=== PATIENT | male | born 1965 | race Caucasian/White ===

== ENCOUNTER → 2023-05-21 14:39 | Outpatient (REF) | payer OTHER, SELFPAY | LOC: HWRAD 14:39 | PROVIDERS: ATTENDING PHYSICIAN Physician Assistant Medical; FAMILY PHYSICIAN Student in an Organized Health Care Education/Training Program | DX: R10.13 Epigastric pain (principal) | CPT/HCPCS: 76700 ==

== ENCOUNTER → 2023-05-30 09:18 | Outpatient (REF) | payer OTHER, SELFPAY | LOC: HWRAD 09:18 | PROVIDERS: ATTENDING PHYSICIAN Physician Assistant Medical; FAMILY PHYSICIAN Student in an Organized Health Care Education/Training Program | DX: R10.13 Epigastric pain (principal) | CPT/HCPCS: 74177; Q9967 ==

== ENCOUNTER → 2023-08-05 16:22 | Outpatient (REF) | payer OTHER, SELFPAY | LOC: WDC 16:22 | PROVIDERS: ATTENDING PHYSICIAN Student in an Organized Health Care Education/Training Program | DX: Z12.31 Encounter for screening mammogram for malignant neoplasm of breast (principal); Z80.3 Family history of malignant neoplasm of breast | CPT/HCPCS: 77063; 77067 ==

== ENCOUNTER 2023-08-26 14:47 | Emergency (ER) | payer OTHER, SELFPAY ==
[2023-08-26 14:52] VITALS: BP 142/85
--- NOTE | 2023-08-26 15:41 | ED.GENMED ---
History of Present Illness
General
Chief Complaint: Abdominal Pain
Source: patient and spouse
Exam Limitations: none
Time Seen by Provider: 08/26/23 15:08
Nursing documentation reviewed up to this point in time: agreed with
Travel History
Have you had any contact with someone who has COVID-19?: No
Do you have any symptoms of coronavirus? Fever > 100 degrees, chills, cough, shortness of breath, sore throat, loss of taste or smell, muscle aches, or headache?: No
History of Present Illness
History of Present Illness:
58-year-old male presents emerged department complaining of his right inguinal hernia letting loose and not being able to reduce it. He was walking around plan the [employer] for day ceremony at [facility].
Past History
Past History
ED Past Medical History: Asthma, Cancer, HTN (Takes diltiazem) and Psychiatric (anxiety)
ED Past Surgical History: Orthopedic (fx L tib fib) and Other (sleep apnea surgery with resolution of symptoms. Excision of melanoma)
Social History
Tobacco: Non-smoker
Alcohol: None
Drug: None
Personal:
Living: with family
Employment: Employed
Family History
Family History: Other (A. fib)
Review of Systems
Review of Systems
Allergies reviewed?: Yes
All Other Systems: Not applicable
Constitutional: Reports no symptoms
EENT: Reports no symptoms
Respiratory: Reports no symptoms
Cardiac: Reports no symptoms
ABD/GI: Reports other (Right groin pain)
: Reports no symptoms
Musculoskeletal: Reports no symptoms
Skin: Reports no symptoms
Neurological: Reports no symptoms
Endocrine: Reports no symptoms
Hematologic/Lymphatic: Reports no symptoms
Psychiatric: Reports no symptoms
Phy Exam
Physical Exam
Physical Exam:
Physical Exam
General: no apparent distress, not acutely ill
Neck: supple. no meningeal signs. normal posterior pharynx
Heart: equal radial pulses.
HEENT: Pupils equal round reactive to light, EOMI
Lungs: no acute respiratory distress. clear bilaterally
Abdomen: normal bowel sounds. not tender. no CVAT, right groin no palpable mass or hernia, nontender
Neuro: alert and oriented. no focal neurological deficits cranial nerves II through XII intact
Skin: no rash
Psychiatric: well kept. interactive and cooperative
Extremities: no edema. no calf tenderness. negative homans. good distal pulses
Course
Orders/Labs/Results
Orders:
Orders
08/26/23 15:31
US Groin (Imaging Only) RT Urgent
Comment:
Reason For Exam: right groin pain, history of hernia
Vital Signs
Initial and Last Documented VS:
Initial Vital Signs
Temp Pulse Resp BP Pulse Ox
98.2 F 75 18 142/85 99
08/26/23 14:52 08/26/23 14:52 08/26/23 14:52 08/26/23 14:52 08/26/23 14:52
Last Documented Vital Signs
Temp Pulse Resp BP Pulse Ox
98.2 F 75 18 142/85 99
08/26/23 14:52 08/26/23 14:52 08/26/23 14:52 08/26/23 14:52 08/26/23 14:52
MDM/Problems Addressed
Differential Diagnosis Includes:
Right inguinal hernia, groin pain
MDM/Problems Addressed:
58-year-old male with right groin pain, possibly from fat-containing hernia. No signs of incarcerated bowel. No significant tenderness or mass felt. For discharge to follow-up with general surgery. Return precautions given.
*Radiology
Radiology exam reviewed: radiology read reviewed (Ultrasound shows no signs of bowel incarceration or significant hernia)
*Pulse Oximetry
Patient hypoxic: no
*EKG
Interpreted by ED Provider?: NA
*Master Hearth Technician Interpretation
Rate: Master Hearth Technician- N/A
*Critical Care Note
Total Time (30-74mins, 75-104mins- exclusive of procedures): Not Applicable
Data Reviewed
Review of Other/Old Records Reveals: Radiology Studies (Prior CT abdomen pelvis showed fat-containing inguinal hernia on 05/30/2023)
Source: records
Patient Management
Social determinants of health affecting care: Living situation
Escalation/DeEscalation of care consider admission/obs:
Admit not indicated
ED Attending Note
-
Portions of this chart may have been created with voice recognition software.� Occasional wrong word or��sound alike� substitutions may have occurred due to the inherent limitations of voice recognition software.
Discharge Plan
Departure
Patient Disposition: Home (Routine Discharge)
Date of Disposition: 08/26/23
Time of Disposition: 17:56
Patient with high blood pressure during this ER visit?: Yes
Condition: Good
Discharge Problem:
Right groin pain
Instructions: Groin Hernia (DC), BLOOD PRESSURE
Prescriptions:
No Action
albuterol sulfate 2.5 MG/3 ML solution for nebulization
2.5 mg inhalation R QIDPRN PRN (Reason: SOB)
acetaminophen 325 MG tablet
650 mg PO Q4HPRN PRN (Reason: headache)
pravastatin 40 MG tablet
80 mg PO .1800
ketotifen fumarate [Zaditor] 1 DROP drops
1 drp BOTH EYES Q8HPRN PRN (Reason: dryness)
cranberry 450 MG tablet
450 mg PO DAILY@1600
[place]-3 Plus Vitamin D3 1 EACH capsule,delayed release(DR/EC)
1 cap PO .1800
albuterol sulfate [Albuterol Sulfate HFA] 18 GM HFA aerosol inhaler
1 - 2 puff inhalation QIDPRN PRN (Reason: SOB)
Men's Multivitamin 1 EACH tablet
1 ea PO .1800
Retaine MGD (PF) 1 EACH dropperette
1 ea OP TID
duloxetine [Cymbalta] 30 mg capsule,delayed release(DR/EC)
30 mg PO DAILY Qty: 14 0RF
diltiazem HCl 120 mg tablet
120 mg PO BID
Referrals:
Heather Llamas MD [Family Provider] -
Dung Garcia MD [Active] - Call in 1-3 days for appt
Interventions
Interventions:
GD-Vjqics-Vhycsfesmo Assessment Last Done: 08/26/23 15:36
Discharge Date and Time
Print Language: ALBANIAN
[2023-08-26 18:26] VITALS: BP 144/95
== END 2023-08-26 18:28 | disposition home or self-care (01) ==
LOC: EMR 14:47
PROVIDERS: EMERGENCY PHYSICIAN Emergency Medicine; FAMILY PHYSICIAN Student in an Organized Health Care Education/Training Program
DX: R10.31 Right lower quadrant pain (principal); K40.90 Unilateral inguinal hernia, without obstruction or gangrene, not specified as recurrent; J45.909 Unspecified asthma, uncomplicated; I10 Essential (primary) hypertension; F41.9 Anxiety disorder, unspecified; G47.30 Sleep apnea, unspecified; Z85.820 Personal history of malignant melanoma of skin; Z79.899 Other long term (current) drug therapy
CPT/HCPCS: 99284; 76882

== ENCOUNTER 2023-10-07 06:32 | Day surgery (SDC) | payer OTHER, SELFPAY ==
[2023-09-25 07:12] VITALS: BMI 27.3
[2023-09-25 08:50] LABS: Hematocrit 45.2 % (39.0-52.0); Hemoglobin 15.7 g/dL (13.0-18.0); Mean Corp Hgb Conc. 34.7 g/dL (33.0-37.0); Mean Corpuscular Volume 86.4 fL (80.0-94.0); Mean Platelet Volume 10.6 fL (7.4-10.4); Platelet Count 227 10^3/uL (130-400); Red Blood Cell Count 5.23 10^6/uL (4.70-6.10); Red Cell Dist. Width 12.4 % (11.5-14.5); White Blood Cell Count 11.4 10^3/uL (4.8-10.8)
[2023-09-25 09:39] LABS: Blood Urea Nitrogen 20 mg/dl (9-20); Calcium 9.6 mg/dl (8.4-10.2); Carbon Dioxide 27 mmol/L (22-30); Chloride 103 mmol/L (98-107); Estimated Creatinine Clearance 81 ml/min; Glucose 123 mg/dl (70-99); Potassium 4.2 mmol/L (3.5-5.1); Sodium 141 mmol/L (135-145); eGFR > 60.00
[2023-10-07] VITALS (10 sets, daily range): BP systolic 106–127; BP diastolic 63–74; BMI 27.3
[2023-10-07] MEDS: NORMOSOL-R 1000 IV (08:58)
[2023-10-07] MEDS: TYLENOL 1000 MG PO (08:58)
--- NOTE | 2023-10-07 10:03 | HP.FOC2 ---
Focused History & Physical
Chief Complaint
HPI:
Chief Complaint: Bilateral inguinal hernias
HPI / Indication for Planned Procedure: Patient is a 58-year-old male recently seen in outpatient surgical evaluation secondary to a longstanding history of bilateral inguinal hernias that he is chosen to follow expectantly for the last 14 years.
They have slowly enlarged in size he now is having some discomfort particularly in the right inguinal region while standing. Physical examination confirmed the presence of bilateral inguinal hernias, reducible, right side larger than left. He
presents today for scheduled operative correction.
Relevant Past Medical History: Other (History of prostatitis, asthma, hypercholesterolemia, migraines, anxiety, hypertension, GERD, cervical herniated disc, sleep apnea)
Relevant Social History: Negative
Relevant Family History: Negative
Relevant Past Surgical History: Positive for ([place] teeth, tibial zelda, foot surgery, tonsils, right lower extremity staph infection, uvuloplasty, resection melanoma, right rotator cuff, cardiac catheterization)
Review of Systems
Review of Pertinent Systems: All Systems Negative
Medication
See Medication form for detailed medications: Yes
Medication List (including Herbals & OTC):
albuterol sulfate 2.5 mg/3 mL (0.083 %) solution for nebulization 2.5 mg inhalation R QIDPRN PRN SOB 08/09/16
acetaminophen 325 mg tablet 650 mg PO Q4HPRN PRN headache 01/12/21
cranberry fruit 450 mg tablet (cranberry) 450 mg PO DAILY@1600 Supplement 01/12/21
omega-3 150 jz-gzn-gpm-fish oil 500 mg-D3 200 unit capsule,delayed rel ([place]-3 Plus Vitamin D3) 1 cap PO QPM Supplement 01/12/21
diltiazem HCl 120 mg tablet 120 mg PO BID Arrhythmia 06/17/22
albuterol sulfate 90 mcg/actuation aerosol inhaler 2 inh inhalation PRN PRN SOB, Wheezes 09/30/23
duloxetine 30 mg capsule,delayed release (Cymbalta) 60 mg PO DAILY 09/30/23
light mineral oil-mineral oil (PF) 0.5 %-0.5 % eye drops,dropperette (Retaine MGD (PF)) 1 drp ophthalmic (eye) TID 09/30/23
multivitamin 1 tab PO QPM 09/30/23
pravastatin 80 mg tablet 80 mg PO QPM 09/30/23
Medications Reviewed: Yes
Allergies and Reactions
Patient has Allergies: Yes
Noted Allergies and Reactions:
Allergy/AdvReac Type Severity Reaction Status Date / Time
alfuzosin Allergy Low blood Verified 10/07/23 08:37
pressure
and chest
pain
alprazolam [From Xanax] Allergy Headache Verified 10/07/23 08:37
aspirin Allergy Stomach Verified 10/07/23 08:37
Pain
atorvastatin Allergy Sharp pain Verified 10/07/23 08:37
in hands
celecoxib Allergy LEG CRAMPS Verified 10/07/23 08:37
erythromycin base Allergy Severe Verified 10/07/23 08:37
Diarrhea,
GI Upset,
Nausea
grass pollen Allergy Sneezing, Verified 10/07/23 08:37
Rhinitis,
Itchy
Eyes,
Asthma
Symptoms
hydrocodone [From Vicodin] Allergy Anxiety Verified 10/07/23 08:37
hydrocodone bitartrate Allergy anxious Verified 10/07/23 08:37
[From Vicodin]
meloxicam Allergy Chest Verified 10/07/23 08:37
Pressure
mold Allergy Sneezing, Verified 10/07/23 08:37
Rhinitis,
Itchy
Eyes,
Asthma
Symptoms
shellfish derived Allergy Hives, Verified 10/07/23 08:37
Difficulty
Breathing
tamsulosin Allergy Low blood Verified 10/07/23 08:37
pressure,
fatigue,
pounding
heart rate
anesthesia AdvReac Pharmacy Uncoded 10/07/23 08:37
to Review
Pertinent Physical Exam
All Other Systems: Negative
Head/Neck: Normal
Lungs: Normal
Heart: Normal
Abdomen: Other (Bilateral inguinal hernias right larger than left)
Extremities: Normal
Neurological: Normal
Diagnosis / Assessment
58-year-old male presenting for scheduled operative correction symptomatic inguinal hernias
Plan / Procedure
Robotic assisted laparoscopic repair bilateral inguinal hernias with mesh
Anesthesia/Sedation to be done by Anesthesia Provider: Yes
--- NOTE | 2023-10-07 10:06 | W.SUR.PREOP ---
Pre-Operative Surgical Note
-
I have examined this patient prior to the performance of the scheduled procedure.
The patient's condition is unchanged from the time of the current History and
Physical and the patient is able to undergo the scheduled procedure.
--- NOTE | 2023-10-07 13:04 | W.IMMPOSTOP ---
Addendum entered and electronically signed by Roderick Lackey MD 10/07/23 13:34:
The assistance of Abigail Polo PA-C was required due to the complexity of the procedure. During the procedure Abigail Polo PA-C assisted with port placement, robotic instrumentation and suture material exchanges, and closure of the surgical incision
sites. I was present for the entirety of the operative procedure.
Original Note:
Surgical Immed Post Op Note
-
Primary Surgeon: Darya
Assisting Surgeon: Abigail Polo PA-c
Pre-op Diagnosis: Bilateral inguinal hernias
Post-op Diagnosis: Bilateral inguinal hernia; direct
Procedure Performed: RAL DOMONIQUE repair bilateral inguinal hernias with mesh; 3D max large regular weight
Anesthesia Type: GETA +0.25% Marcaine
Specimen / Cultures: None
Estimated Blood Loss: 6 mL
Complications: None immediate
Operative Findings: Large bilateral direct inguinal hernias. Springer catheter placed to assist with decompression of bladder for exposure, 200 mL urine. Indirect and femoral spaces normal. Area of adhesions in small bowel likely reflective of prior
events of small bowel protruding into hernia. 3D max large regular weight mesh repair x 2. Superficial plication of attenuated transversalis fascia/pseudosac with 2-0 PDS Stratafix.
[2023-10-07] MEDS: ZOFRAN 4 MG IV (13:09)
[2023-10-07] MEDS: DILAUDID 0.25 MG IV (13:36)
== END 2023-10-07 14:40 | disposition home or self-care (01) ==
LOC: SDS 06:32
PROVIDERS: ATTENDING PHYSICIAN Surgery; FAMILY PHYSICIAN Student in an Organized Health Care Education/Training Program
DX: K40.20 Bilateral inguinal hernia, without obstruction or gangrene, not specified as recurrent (principal)
CPT/HCPCS: 49650; 36415; 80048; 85027; C1781

== ENCOUNTER 2023-10-12 10:02 | Emergency (ER) | payer OTHER, SELFPAY ==
[2023-10-12 10:09] VITALS: BP 134/83
--- NOTE | 2023-10-12 11:19 | ED.GENMED ---
History of Present Illness
General
Chief Complaint: Bowel Problem
Source: patient
Exam Limitations: none
Time Seen by Provider: 10/12/23 11:09
History of Present Illness
History of Present Illness:
See MDM
Past History
Past History
ED Past Medical History: Asthma, Cancer, HTN (Takes diltiazem) and Psychiatric (anxiety)
ED Past Surgical History: Orthopedic (fx L tib fib) and Other (sleep apnea surgery with resolution of symptoms. Excision of melanoma)
Social History
Tobacco: Non-smoker
Alcohol: None
Drug: None
Personal:
Living: with family
Employment: Employed
Family History
Family History: Other (A. fib)
Phy Exam
Physical Exam
Physical Exam:
See MDM
Course
Orders/Labs/Results
Orders:
Orders
10/12/23 11:19
Enema- Treatment ONCE
Type: Milk of Molasses
10/12/23 12:01
Abdominal Series [CR Obstruct Series W/pa Chest] Urgent
Comment:
Reason For Exam: constipated, left abd pain
10/12/23 13:39
Magnesium Citrate [Citroma] 300 ml PO ONCE ONE
Vital Signs
Initial and Last Documented VS:
Initial Vital Signs
Temp Pulse Resp BP Pulse Ox
98.8 F 73 16 134/83 98
10/12/23 10:09 10/12/23 10:09 10/12/23 10:09 10/12/23 10:09 10/12/23 10:09
Last Documented Vital Signs
Temp Pulse Resp BP Pulse Ox
98.8 F 73 16 134/83 98
10/12/23 10:09 10/12/23 10:09 10/12/23 10:09 10/12/23 10:09 10/12/23 10:09
MDM/Problems Addressed
Differential Diagnosis Includes:
HPI and MDM Narrative:
58-year-old male presenting for evaluation of constipation. Patient had routine bilateral inguinal hernia repair performed on the eighth. His last bowel movement was on the seventh. Patient has not had a bowel movement in 6 days or so. He has
been taking MiraLAX and Dulcolax with no relief. He is passing gas. He denies vomiting
We discussed the expect constipation issues as result to likely ileus. Regardless, he is extremely well-appearing and nontoxic. His abdomen is soft and nontender. There is no clinical signs of obstruction. Rectal exam was performed and I was
able to palpate stool. However, it was too proximal for me to disimpact. Will give milk of molasses enema and reassess
Physical exam
General: Well appearing and non-toxic
HEENT: protecting airway
Neck: appears supple
CV: No evidence of cyanosis
Resp: No accessory muscle use
Abd: Non-distended. Soft and nontender
Rectal: Stool palpated in the rectal vault
Extremities: No deformities
Neuro: alert
Psych: Normal affect
Skin: Intact
Problems Addressed including Acute and Chronic Conditions affecting care:
1. Postoperative constipation
Acuity: acute
Prognosis: stable
Details: Likely an ileus. Given that stool is in the rectal vault and he has no signs of obstruction, will give enema and reassess
Updates
Patient feeling much better after enema. Will write for magnesium citrate and patient feels comfortable going home
Differential Diagnosis (but not limited to): Constipation, postoperative ileus
Testing considered: Abdominal x-ray
Drug therapy (if applicable): OTC meds, please see d/c instruction regarding Rx drugs
Amount and/or Complexity of Data Reviewed
Clinical info obtained from: Patient
External data reviewed: N/A
Labs I independently reviewed (but not limited to): N/A
Radiology: X-ray independently reviewed: Abdominal x-ray with some stool but no obstructive pathology
Pulse Ox: not hypoxic
EKG independently reviewed: N/A
Boat Oar Maker: N/A
Critical Care: N/A
Risk of Complication:
Social Determinants of health: Good social support
Discussed with other providers: N/A
Escalation of Care includes Admit/Obs: After being observed in the Emergency Department, pt stable for discharge.
Occasional wrong word or 'sound a like' substitutions may have occurred due to the inherent limitations of voice recognition software. Read the chart carefully and recognize, using context, where substitutions have occurred.
*Critical Care Note
Total Time (30-74mins, 75-104mins- exclusive of procedures): Not Applicable
ED Attending Note
-
Portions of this chart may have been created with voice recognition software.� Occasional wrong word or��sound alike� substitutions may have occurred due to the inherent limitations of voice recognition software.
Discharge Plan
Departure
Patient Disposition: Home (Routine Discharge)
Date of Disposition: 10/12/23
Time of Disposition: 13:40
Patient with high blood pressure during this ER visit?: No
Discharge Problem:
Constipation
Instructions: Constipation, Adult (DC)
Prescriptions:
No Action
albuterol sulfate 2.5 MG/3 ML solution for nebulization
2.5 mg inhalation R QIDPRN PRN (Reason: SOB)
acetaminophen 325 MG tablet
650 mg PO Q4HPRN PRN (Reason: headache)
cranberry 450 MG tablet
450 mg PO DAILY@1600
[place]-3 Plus Vitamin D3 1 EACH capsule,delayed release(DR/EC)
1 cap PO QPM
diltiazem HCl 120 mg tablet
120 mg PO BID
multivitamin Tablet
1 tab PO QPM
pravastatin 80 mg Tablet
80 mg PO QPM
albuterol sulfate 90 mcg/actuation Hfa Aerosol Inhaler
2 inh INHALATION PRN PRN (Reason: SOB, Wheezes)
Retaine MGD (PF) 0.5-0.5 % Dropperette
1 drp ophthalmic (eye) TID
duloxetine [Cymbalta] 30 mg capsule,delayed release(DR/EC)
60 mg PO DAILY
ibuprofen 200 mg tablet
400 - 600 mg PO Q6HPRN PRN (Reason: moderate pain) Qty: 1 0RF
polyethylene glycol 3350 [Miralax] 17 gram/dose powder
4 g PO DAILY PRN (Reason: Constipation) Qty: 119 0RF
Rx Instructions:
start a laxative such as MIRALAX on day 2 after surgery if no bowel movement yet as long as no nausea/vomiting and passing gas
oxycodone 5 mg tablet
5 mg PO Q4HPRN PRN (Reason: breakthrough/severe pain) Qty: 5 0RF
Referrals:
Heather Llamas MD [Family Provider] -
Activity Restrictions/Additional Instructions:
Please return for any worsening symptoms.
You may return at any time if you have further concerns.
Please follow up with your doctor at the first available appointment, preferably this week.
Please take a daily stool softener moving forward.
Thank you for choosing [facility].
Interventions
Interventions:
*Risk Screen - Suicide Last Done: 10/12/23 11:30
*General Assessment Last Done: 10/12/23 10:10
*Neglect/Abuse Screening Last Done: 10/12/23 11:30
ED- Fall Risk Assessment Last Done: 10/12/23 11:30
*ED COVID-19 Vaccine History Last Done: 10/12/23 10:10
KA-Pmvqgy-Rdtekojlxj Assessment Last Done: 10/12/23 11:30
Discharge Date and Time
Print Language: HONG KONG[place]
[2023-10-12] MEDS: CITROMA 300 ML PO (13:48)
== END 2023-10-12 13:52 | disposition home or self-care (01) ==
LOC: EMR 10:02
PROVIDERS: EMERGENCY PHYSICIAN Student in an Organized Health Care Education/Training Program; FAMILY PHYSICIAN Student in an Organized Health Care Education/Training Program
DX: K59.00 Constipation, unspecified (principal)
CPT/HCPCS: 99283; 74022

== ENCOUNTER → 2023-11-26 14:42 | Outpatient (REF) | payer OTHER, SELFPAY | LOC: RAD 14:42 | PROVIDERS: ATTENDING PHYSICIAN Physical Medicine & Rehabilitation; FAMILY PHYSICIAN Student in an Organized Health Care Education/Training Program | DX: M54.12 Radiculopathy, cervical region (principal); M50.30 Other cervical disc degeneration, unspecified cervical region | CPT/HCPCS: 72050 ==

== ENCOUNTER → 2023-12-03 13:21 | Outpatient (REF) | payer OTHER, SELFPAY | LOC: PAVMRI 13:21 | PROVIDERS: ATTENDING PHYSICIAN Physical Medicine & Rehabilitation; FAMILY PHYSICIAN Student in an Organized Health Care Education/Training Program | DX: M54.12 Radiculopathy, cervical region (principal); M50.30 Other cervical disc degeneration, unspecified cervical region | CPT/HCPCS: 72141 ==

== ENCOUNTER → 2023-12-11 15:36 | Outpatient (REF) | payer OTHER, SELFPAY | LOC: RAD 15:36 | PROVIDERS: ATTENDING PHYSICIAN Physical Medicine & Rehabilitation; FAMILY PHYSICIAN Student in an Organized Health Care Education/Training Program | DX: M54.12 Radiculopathy, cervical region (principal); M50.30 Other cervical disc degeneration, unspecified cervical region | CPT/HCPCS: 72125 ==

== ENCOUNTER → 2024-06-08 12:23 | Outpatient (REF) | payer OTHER, SELFPAY | LOC: RAD 12:23 | PROVIDERS: ATTENDING PHYSICIAN Internal Medicine; FAMILY PHYSICIAN Student in an Organized Health Care Education/Training Program | DX: M79.672 Pain in left foot (principal) | CPT/HCPCS: 73630 ==

== ENCOUNTER 2024-06-13 14:03 | Emergency (ER) | payer OTHER, SELFPAY ==
[2024-06-13 14:05] VITALS: BP 145/87
[2024-06-13 14:24] LABS: % Basophils 1.2 % (0-2); % Eosinophils 1.8 % (0-6); % Immature Granulocytes 0.2 % (0-0.5); % Lymphocytes 18.9 % (20.5-51.1); % Monocytes 11.8 % (1.7-9.3); % Neutrophils 66.1 % (42.2-75.2); Absolute Basophils 0.1 10^3/uL (0-0.2); Absolute Eosinophils 0.1 10^3/uL (0-0.7); Absolute Lymphocytes 1.1 10^3/uL (1.2-3.4); Absolute Monocytes 0.7 10^3/uL (0.1-0.6); Hematocrit 47.2 % (39.0-52.0); Hemoglobin 16.6 g/dL (13.0-18.0); Mean Corp Hgb Conc. 35.2 g/dL (33.0-37.0); Mean Corpuscular Hgb 30.6 pg (27.0-31.0); Mean Corpuscular Volume 86.9 fL (80.0-94.0); Nucleated Red Blood Cells % 0 % (-); Platelet Count 233 10^3/uL (130-400); Red Blood Cell Count 5.43 10^6/uL (4.70-6.10); Red Cell Dist. Width 12.2 % (11.5-14.5)
[2024-06-13 14:46] LABS: ALT (SGPT) 36 U/L (0-50); AST (SGOT) 30 U/L (17-59); Albumin 4.6 g/dl (3.5-5.0); Alkaline Phosphatase 71 U/L (38-126); Blood Urea Nitrogen 18 mg/dl (9-20); Calcium 9.9 mg/dl (8.4-10.2); Carbon Dioxide 30 mmol/L (22-30); Chloride 100 mmol/L (98-107); Glucose 166 mg/dl (70-99); Potassium 4.3 mmol/L (3.5-5.1); Sodium 139 mmol/L (135-145); Total Bilirubin 0.8 mg/dl (0.2-1.3); eGFR > 60.00
[2024-06-13 14:47] LABS: Troponin I 0.014 ng/ml
[2024-06-13 17:20] VITALS: BP 148/91
--- NOTE | 2024-06-13 17:59 | ED.GENMED ---
History of Present Illness
General
Chief Complaint: Breathing Problem
Source: patient and spouse
Exam Limitations: none
Time Seen by Provider: 06/13/24 17:43
Nursing documentation reviewed up to this point in time: agreed with
History of Present Illness
History of Present Illness:
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
breath when he exerts himself no leg edema, has had some sick contacts
Past History
Past History
ED Past Medical History: Asthma, Cancer, HTN (Takes diltiazem) and Psychiatric (anxiety)
ED Past Surgical History: Orthopedic (fx L tib fib) and Other (sleep apnea surgery with resolution of symptoms. Excision of melanoma)
Social History
Tobacco: Non-smoker
Alcohol: None
Drug: None
Personal:
Living: with family
Employment: Employed
Family History
Family History: Other (A. fib)
Review of Systems
Review of Systems
All Other Systems: Not applicable
Constitutional: Reports fatigue; Denies fever
EENT: Reports no symptoms
Respiratory: Reports trouble breathing; Denies cough
Cardiac: Reports chest pain and palpitations; Denies diaphoresis or syncope
ABD/GI: Reports no symptoms
: Reports no symptoms
Musculoskeletal: Reports no symptoms
Skin: Reports no symptoms
Phy Exam
Physical Exam
Physical Exam:
Physical Exam
General: no apparent distress, not acutely ill
Neck: No jaundice
Heart: Regular
Lungs: no acute respiratory distress. clear bilaterally
Abdomen: Not tender
Neuro: alert and oriented. no focal neurological deficits
Skin: no rash
Psychiatric: well kept. interactive and cooperative
Extremities: no edema. no calf tenderness.
Scores
Heart Failure Risk
Heart Failure Risk Score: Not Applicable
Course
Orders/Labs/Results
Orders:
Orders
06/13/24 14:04
ECG [Electrocardiogram (*1)] Urgent
Reason for Study: Shortness of Breath
EKG- Treatment ONCE
06/13/24 14:12
Complete Blood Count/With Diff Urgent
Comprehensive Metabolic Panel Urgent
NT-proBNP Urgent
Comment: ADD ON
Troponin I Urgent
06/13/24 17:55
Add On- LAB Urgent
Tests Added?: pBNP
CR Chest - 2 Views Urgent
Comment:
Reason For Exam: sob
06/13/24 18:02
COVID-19 Antigen Urgent
Source: Nasal Swab
D-Dimer Urgent
Influenza A+B Rapid Molecular Urgent
REMI Source: Nasal Swab
Specimen Description:
Respiratory Syncytial Virus Urgent
REMI Source: Nasal Swab
Specimen Description:
Date Specimen was Collected: 06/13/24
Time Specimen was Collected: 17:56
Abnormal Lab Results
06/13/24
14:12
Absolute Lymphs (auto) 1.1 L 10^3/uL
(1.2-3.4)
Absolute Monos (auto) 0.7 H 10^3/uL
(0.1-0.6)
Lymphocytes % 18.9 L %
(20.5-51.1)
Monocytes % 11.8 H %
(1.7-9.3)
Glucose 166 H mg/dl
(70-99)
06/13/24 14:12
06/13/24 14:12
Vital Signs
Initial and Last Documented VS:
Initial Vital Signs
Temp Pulse Resp BP Pulse Ox
98.5 F 84 16 145/87 98
06/13/24 14:05 06/13/24 14:05 06/13/24 14:05 06/13/24 14:05 06/13/24 14:05
Last Documented Vital Signs
Temp Pulse Resp BP Pulse Ox
98.5 F 70 21 143/91 98
06/13/24 14:05 06/13/24 19:30 06/13/24 19:30 06/13/24 19:00 06/13/24 14:05
*Critical Care Note
Total Time (30-74mins, 75-104mins- exclusive of procedures): Not Applicable
Update Note
Update Note:
8 PM labs noted, workup negative. No significant arrhythmia noted,
ED Attending Note
-
Portions of this chart may have been created with voice recognition software.� Occasional wrong word or��sound alike� substitutions may have occurred due to the inherent limitations of voice recognition software.
Discharge Plan
Departure
Patient Disposition: Home (Routine Discharge)
Date of Disposition: 06/13/24
Time of Disposition: 19:57
Patient with high blood pressure during this ER visit?: No
Condition: Good
Discharge Problem:
Fatigue, Heart palpitations
Instructions: Palpitations ED, Fatigue ED
Prescriptions:
No Action
albuterol sulfate 2.5 MG/3 ML solution for nebulization
2.5 mg inhalation R QIDPRN PRN (Reason: SOB)
acetaminophen 325 MG tablet
650 mg PO Q4HPRN PRN (Reason: headache)
cranberry 450 MG tablet
450 mg PO DAILY@1600
[place]-3 Plus Vitamin D3 1 EACH capsule,delayed release(DR/EC)
1 cap PO QPM
diltiazem HCl 120 mg tablet
120 mg PO BID
multivitamin Tablet
1 tab PO QPM
pravastatin 80 mg Tablet
80 mg PO QPM
albuterol sulfate 90 mcg/actuation Hfa Aerosol Inhaler
2 inh INHALATION PRN PRN (Reason: SOB, Wheezes)
Retaine MGD (PF) 0.5-0.5 % Dropperette
1 drp ophthalmic (eye) TID
duloxetine [Cymbalta] 30 mg capsule,delayed release(DR/EC)
60 mg PO DAILY
ibuprofen 200 mg tablet
400 - 600 mg PO Q6HPRN PRN (Reason: moderate pain) Qty: 1 0RF
polyethylene glycol 3350 [Miralax] 17 gram/dose powder
4 g PO DAILY PRN (Reason: Constipation) Qty: 119 0RF
Rx Instructions:
start a laxative such as MIRALAX on day 2 after surgery if no bowel movement yet as long as no nausea/vomiting and passing gas
oxycodone 5 mg tablet
5 mg PO Q4HPRN PRN (Reason: breakthrough/severe pain) Qty: 5 0RF
Referrals:
Heather Llamas MD [Family Provider] - Next open appointment
Activity Restrictions/Additional Instructions:
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
Interventions
Interventions:
*Risk Screen - Suicide Last Done: 06/13/24 14:05
*General Assessment Last Done: 06/13/24 18:08
*Neglect/Abuse Screening Last Done: 06/13/24 14:05
*ED- Fall Risk Assessment Last Done: 06/13/24 18:08
*ED COVID-19 Vaccine History Last Done: 06/13/24 18:08
ED- Cardiac Assessment Last Done: 06/13/24 18:14
ED- Pulmonary Assessment Last Done: 06/13/24 18:14
Discharge Date and Time
Print Language: [id number]
[2024-06-13 18:00] VITALS: BP 156/90
[2024-06-13 18:09] VITALS: BMI 28.8
[2024-06-13 18:40] LABS: NT-proBNP 20.7 pg/ml
[2024-06-13 18:46] LABS: D-Dimer < 0.27 ug/mlFEU (0.00-0.50)
[2024-06-13 18:49] LABS: COVID-19 Antigen Negative (Negative)
[2024-06-13 19:00] VITALS: BP 143/91
[2024-06-13 20:00] VITALS: BP 122/76
== END 2024-06-13 20:19 | disposition home or self-care (01) ==
LOC: EMR 14:03
PROVIDERS: Emergency Medicine; EMERGENCY PHYSICIAN Emergency Medicine; FAMILY PHYSICIAN Student in an Organized Health Care Education/Training Program
DX: R53.83 Other fatigue (principal); R00.2 Palpitations; I10 Essential (primary) hypertension; J45.909 Unspecified asthma, uncomplicated; Z85.820 Personal history of malignant melanoma of skin; Z79.899 Other long term (current) drug therapy; Z11.52 Encounter for screening for COVID-19
CPT/HCPCS: 99285; 71046; 80053; 83880; 84484; 85025; 85379; 87502; 87807; 87811; 93005

== ENCOUNTER → 2024-07-21 08:01 | Outpatient (REF) | payer OTHER, SELFPAY | LOC: RCS 08:01 | PROVIDERS: ATTENDING PHYSICIAN Nurse Practitioner; FAMILY PHYSICIAN Student in an Organized Health Care Education/Training Program | DX: R00.2 Palpitations (principal); R06.02 Shortness of breath | CPT/HCPCS: 93306 ==

== ENCOUNTER → 2024-08-20 15:01 | Outpatient (REF) | payer OTHER, SELFPAY | LOC: PAVMRI 15:01 | PROVIDERS: ATTENDING PHYSICIAN Student in an Organized Health Care Education/Training Program | DX: M54.12 Radiculopathy, cervical region (principal) | CPT/HCPCS: 72141 ==

== ENCOUNTER → 2024-08-27 15:56 | Outpatient (REF) | payer OTHER, SELFPAY | LOC: RAD 15:56 | PROVIDERS: ATTENDING PHYSICIAN Student in an Organized Health Care Education/Training Program | DX: M54.50 Low back pain, unspecified (principal); M54.31 Sciatica, right side | CPT/HCPCS: 72110; 72220 ==

== ENCOUNTER → 2024-09-03 06:55 | Outpatient (REF) | payer OTHER, SELFPAY | LOC: RCS 06:55 | PROVIDERS: ATTENDING PHYSICIAN Internal Medicine Cardiovascular Disease; FAMILY PHYSICIAN Student in an Organized Health Care Education/Training Program | DX: R07.89 Other chest pain (principal) | CPT/HCPCS: 78452; 93017; A9500; J2785 ==

== ENCOUNTER → 2024-09-07 08:25 | Outpatient (REF) | payer OTHER, SELFPAY | LOC: MRI 3T 08:25 | PROVIDERS: ATTENDING PHYSICIAN Student in an Organized Health Care Education/Training Program | DX: M53.3 Sacrococcygeal disorders, not elsewhere classified (principal); M54.16 Radiculopathy, lumbar region; M48.061 Spinal stenosis, lumbar region without neurogenic claudication; Z91.81 History of falling | CPT/HCPCS: 72148; 72195 ==

== ENCOUNTER → 2024-09-09 15:31 | Outpatient (REF) | payer OTHER, SELFPAY | LOC: DHSLP 15:31 | PROVIDERS: ATTENDING PHYSICIAN Student in an Organized Health Care Education/Training Program | DX: G47.33 Obstructive sleep apnea (adult) (pediatric) (principal) | CPT/HCPCS: 95800 ==

== ENCOUNTER 2024-09-10 07:09 | Day surgery (SDC) | payer OTHER, SELFPAY ==
[2024-09-09 10:41] VITALS: BMI 28.8
[2024-09-09 11:13] LABS: % Basophils 1.3 % (0-2); % Eosinophils 3.2 % (0-6); % Immature Granulocytes 0.2 % (0-0.5); % Lymphocytes 19.1 % (20.5-51.1); % Monocytes 14.1 % (1.7-9.3); % Neutrophils 62.1 % (42.2-75.2); Absolute Basophils 0.1 10^3/uL (0-0.2); Absolute Eosinophils 0.2 10^3/uL (0-0.7); Absolute Monocytes 0.8 10^3/uL (0.1-0.6); Absolute Neutrophils 3.3 10^3/uL (1.4-6.5); Hematocrit 47.8 % (39.0-52.0); Hemoglobin 16.4 g/dL (13.0-18.0); Mean Corp Hgb Conc. 34.3 g/dL (33.0-37.0); Mean Corpuscular Hgb 29.9 pg (27.0-31.0); Mean Corpuscular Volume 87.2 fL (80.0-94.0); Mean Platelet Volume 9.9 fL (7.4-10.4); Nucleated Red Blood Cells % 0 % (-); Platelet Count 211 10^3/uL (130-400); Red Blood Cell Count 5.48 10^6/uL (4.70-6.10); Red Cell Dist. Width 12.5 % (11.5-14.5); White Blood Cell Count 5.3 10^3/uL (4.8-10.8)
[2024-09-09 11:49] LABS: ALT (SGPT) 35 U/L (0-50); AST (SGOT) 25 U/L (17-59); Albumin 4.8 g/dl (3.5-5.0); Alkaline Phosphatase 68 U/L (38-126); Blood Urea Nitrogen 15 mg/dl (9-20); Carbon Dioxide 29 mmol/L (22-30); Chloride 106 mmol/L (98-107); Estimated Creatinine Clearance 79 ml/min; Glucose 100 mg/dl (70-99); Potassium 4.9 mmol/L (3.5-5.1); Sodium 142 mmol/L (135-145); Total Bilirubin 0.8 mg/dl (0.2-1.3); Total Protein 7.2 g/dl (6.3-8.2); eGFR > 60.00
[2024-09-10] VITALS (13 sets, daily range): BP systolic 100–150; BP diastolic 58–83
[2024-09-10] MEDS: LOW STRENGTH ASPIRIN 243 MG PO (08:06)
[2024-09-10 11:31] LABS: ACT-LR - POC 297 Seconds (116-155)
[2024-09-10 11:50] LABS: ACT-LR - POC 300 Seconds (116-155)
[2024-09-10 12:05] LABS: ACT-LR - POC 268 Seconds (116-155)
--- NOTE | 2024-09-10 12:32 | ITS.CL.CATH ---
[facility] - Catheterization
Cardiac Catheterization
Procedure Report:
LEFT HEART CATHETERIZATION
Date of Procedure: September 10, 2024
Referring: Chetan Whitt MD
PROCEDURES:
1. Left heart catheterization, coronary angiogram.
2. Moderate sedation.
3. Right heart catheterization
INDICATION: Abnormal stress test in the setting of progressive dyspnea on exertion and bilateral lower extremity pitting edema
ACCESS: 1. Right radial artery, 6Fr. sheath, under US guidance.
2. Right brachial vein, 6 [place]
HEMODYNAMICS : (mmHg)
RA (m) : 6
RV (s/d,m) : 31/4, 12
PA (s/d, m) : 24/7, 13
PCWP (m) : 9
PA saturation: 71.3% on room air
AO saturation: 90.6% on room air
RA saturation: 68.9% on room air
Cardiac Output : 5.8 L/min by Betty calculation
Cardiac Index : 2.84 L/min/m-2 by Betty calculation
Systemic vascular resistance: 1255 dsc^(-5)
Pulmonary vascular resistance: 1.21 bowman unit
AO (s/d) : 122/72
LVEDP : 13
No significant gradient across the aortic valve to suggest aortic stenosis.
CORONARY FINDINGS
Dominance: Right
Left Main Trunk (LMT): Large caliber vessel that gives rise to the LAD and LCx branches and is free of angiographic disease.
Left Anterior Descending Artery (LAD): Large caliber vessel that gives off 2 major diagonal branches as it courses along the anterior inter-ventricular groove before wrapping around the cardiac apex. The LAD and its branches are free of
angiographic disease.
Left Circumflex Artery (LCx): Large caliber vessel that gives off 2 major obtuse marginal (OM) branches as it courses along the atrio-ventricular (AV) groove. The LCx and its branches are free of angiographic disease.
Right Coronary Artery (RCA): Large caliber dominant vessel that gives rise to the posterior descending artery (RPDA) and postero-lateral ventricular (RPLV) branches distally. The RCA and its branches are free of angiographic disease.
SEDATION: 27 minutes of procedural sedation was utilized. IV Midazolam and IV Fentanyl were administered. An independent medical billing associate was present to assist with and help manage the patient's level of consciousness and physiologic status.
RADIATION SUMMARY: Fluoro Time (min): 2.6, Dose (mGy): 147, DAP (Gy.cm2) : 7.9
Closure Device: There were no immediate intra-procedural complications. The sheath was pulled in the labor service representative and a vascular-band applied to the right wrist for radial artery hemostasis using the patent hemostasis technique.
CONCLUSIONS
1. No obstructive coronary artery disease.
2. Normal right and left-sided filling pressures without evidence of pulmonary hypertension and normal cardiac output.
RECOMMENDATIONS
1. Wean radial band per protocol. Monitor right hand perfusion and for bleeding from the radial site following removal of the vascular-band following trans-radial access.
2. Continue aggressive medical therapy and risk factor modification for secondary CAD prevention.
3. Hydrate with normal saline to mitigate the risk of contrast-induced acute kidney injury.
4. Follow-up with Dr. Chetan Whitt
Copy to:Chetan Whitt
Carole Al MD, [facility], [facility]
== END 2024-09-10 12:52 | disposition home or self-care (01) ==
LOC: CATH 07:09
PROVIDERS: ATTENDING PHYSICIAN Internal Medicine Interventional Cardiology; FAMILY PHYSICIAN Student in an Organized Health Care Education/Training Program; OTHER PHYSICIAN Internal Medicine Cardiovascular Disease
DX: I25.10 Atherosclerotic heart disease of native coronary artery without angina pectoris (principal); E78.5 Hyperlipidemia, unspecified; F41.9 Anxiety disorder, unspecified; G47.33 Obstructive sleep apnea (adult) (pediatric); I10 Essential (primary) hypertension; J45.20 Mild intermittent asthma, uncomplicated; M19.90 Unspecified osteoarthritis, unspecified site; N40.0 Benign prostatic hyperplasia without lower urinary tract symptoms; Z68.28 Body mass index [BMI] 28.0-28.9, adult; Z79.82 Long term (current) use of aspirin; Z79.899 Other long term (current) drug therapy; Z82.49 Family history of ischemic heart disease and other diseases of the circulatory system
CPT/HCPCS: 99152; 99153; 36415; 80053; 85025; 93005; 93460; C1894; Q9967

== ENCOUNTER → 2024-09-15 11:01 | Outpatient (REF) | payer OTHER, SELFPAY | LOC: RAD 11:01 | PROVIDERS: ATTENDING PHYSICIAN Internal Medicine Interventional Cardiology; FAMILY PHYSICIAN Student in an Organized Health Care Education/Training Program | DX: I72.9 Aneurysm of unspecified site (principal) | CPT/HCPCS: 93926 ==

== ENCOUNTER → 2024-10-26 08:43 | Outpatient (REF) | payer OTHER, SELFPAY | LOC: RAD 08:43 | PROVIDERS: ATTENDING PHYSICIAN Internal Medicine Gastroenterology; FAMILY PHYSICIAN Student in an Organized Health Care Education/Training Program | DX: R13.10 Dysphagia, unspecified (principal) | CPT/HCPCS: 74221; 74230 ==

== ENCOUNTER 2024-11-24 06:18 | Day surgery (SDC) | payer OTHER, SELFPAY | END 2024-11-24 11:26 | disposition home or self-care (01) | LOC: GI 06:18 | PROVIDERS: ATTENDING PHYSICIAN Internal Medicine Gastroenterology | DX: Z12.11 Encounter for screening for malignant neoplasm of colon (principal); K64.9 Unspecified hemorrhoids; R12 Heartburn; R13.10 Dysphagia, unspecified; K22.2 Esophageal obstruction; K44.9 Diaphragmatic hernia without obstruction or gangrene; K31.7 Polyp of stomach and duodenum; K31.89 Other diseases of stomach and duodenum; K63.5 Polyp of colon; K63.89 Other specified diseases of intestine | CPT/HCPCS: 45384; 45380; 43239; 88305; 88342 ==

== ENCOUNTER → 2025-02-06 09:58 | Outpatient (REF) | payer OTHER, SELFPAY | LOC: RAD 09:58 | PROVIDERS: ATTENDING PHYSICIAN Student in an Organized Health Care Education/Training Program; FAMILY PHYSICIAN Student in an Organized Health Care Education/Training Program | DX: J32.9 Chronic sinusitis, unspecified (principal) | CPT/HCPCS: 70486 ==